=== PATIENT | female | born 2000 | race Caucasian/White ===

== ENCOUNTER → 2018-02-14 | Outpatient (CLI) | payer BC | END | disposition home or self-care (01) | LOC: KCIC US 12:08 | DX: Z34.92 Encounter for supervision of normal pregnancy, unspecified, second trimester (principal); Z3A.14 14 weeks gestation of pregnancy | CPT/HCPCS: 76801 ==

== ENCOUNTER → 2019-09-04 | Outpatient (CLI) | payer BC ==
--- NOTE | 2019-09-05 08:28 | KCIC ---
PREG MORE THAN OR EQ TO 14 WKS History: Unsure dates Comparison: None. Findings: Multiple sonographic images of the uterus are submitted. Cervix measured 6.5 cm. There is single intrauterine fetus in cephalic presentation. There is demonstrable cardiac activity 145 bpm. Subjectively amniotic fluid volume is within normal limits, estimated FRANCO 10.3 cm. There is posterior placenta. There is four-chamber view of the heart. There is no obvious abnormality of the visualized spine. stomach was seen. 2 upper and lower extremities were visualized. 2 kidneys were visualized. There is midline cord insertion. There is no abnormality of the visualized maternal adnexal regions, ovaries not seen. Visualized intracranial structures are morphologically normal. Reportedly there was believed to be a three-vessel cord although not well demonstrated on submitted image. bladder was visualized. Biometry data are as follows: Biparietal diameter 4.45 cm corresponds 19 weeks 3 days Head circumference 16.94 cm corresponds 19 weeks 4 days Abdominal circumference 14.47 cm corresponds 19 weeks 6 days Femur length 3.14 cm corresponds 19 weeks 5 days Adjusted ultrasound age 19 weeks 5 days with estimated delivery date of 01/24/2020 LMP age is 20 weeks 1 day with estimated delivery date of 01/21/2020 Estimated weight 310 g +/- 46 g HC/AC ratio within normal limits 1.17. Impression: 1. There is a single viable intrauterine fetus in cephalic presentation. Adjusted ultrasound age is 19 weeks 5 days with estimated delivery date of 01/24/2020. Electronically signed by: Pedro Guidry MD (09/05/2019 8:25 AM) [email or web address]
== END | disposition home or self-care (01) ==
LOC: KCIC US 12:42
PROVIDERS: ATTEND Midwife
DX: O26.842 Uterine size-date discrepancy, second trimester (principal); Z3A.19 19 weeks gestation of pregnancy
CPT/HCPCS: 76805